=== PATIENT | male | born 1980 | race Two or more races ===

== ENCOUNTER 2019-11-30 18:25 | Emergency (ER) | payer SELFPAY ==
[~2019-11-30] VITALS: Ht 172.7 cm; Wt 113.6 kg
[2019-11-30] MEDS ORDERED: CODE10LI PO (20:09)
[2019-11-30] MEDS ORDERED: LISI-600 PO (20:09)
[2019-11-30 20:38] VITALS: BP 139/88
== END 2019-11-30 20:43 | disposition home or self-care (01) ==
LOC: ER 18:26
DX: R05 Cough (principal); Z20.828 Contact with and (suspected) exposure to other viral communicable diseases; R50.9 Fever, unspecified; Z79.899 Other long term (current) drug therapy
CPT/HCPCS: 36415; 71045; 87635; 99284